=== PATIENT | male | born 1975 | race African-American/Black ===

== ENCOUNTER 2016-10-25 04:59 | Emergency (ER) | payer SELFPAY ==
[~2016-10-25] VITALS: Ht 170.2 cm; Wt 74.7 kg
[~2016-10-25 04:59] MED LIST: Ecotrin PO; Flovent 44 mcg IH; PROVENTIL HFA6.7 GM IH; PROVENTIL17 GM IH; Proventil,Ventolin H IH; SYMBICORT60 INHALA1 IH
[2016-10-25 06:30] VITALS: BP 144/111
== END 2016-10-25 06:32 | disposition home or self-care (01) ==
LOC: EME 04:59
DX: S93.401A Sprain of unspecified ligament of right ankle, initial encounter (principal); X50.9XXA Other and unspecified overexertion or strenuous movements or postures, initial encounter; Y93.67 Activity, basketball; J45.909 Unspecified asthma, uncomplicated; F17.200 Nicotine dependence, unspecified, uncomplicated
CPT/HCPCS: 73610; 99281; 99283

== ENCOUNTER 2017-02-19 07:02 | Emergency (ER) | payer SELFPAY ==
[~2017-02-19] VITALS: Ht 170.2 cm; Wt 72.4 kg
[2017-02-19 08:29] LABS: EOSINOPHIL (%) 5.4 % (0-5); EOSINOPHIL COUNT 0.2 K/uL (0-0.3); HEMATOCRIT 42.1 % (38.0-50.0); IMMATURE GRANULOCYTE (%) 0.8 % (0.0-0.7); LYMPHOCYTE COUNT 1.2 K/uL (1.0-2.8); MCH 29.9 PG (29.0-34.0); MCHC 33.3 G/DL (30.0-36.0); MEAN PLAT.VOLUME 10.8 uM^3 (9.0-12.4); MONOCYTE (%) 9.3 % (3-12); MONOCYTE COUNT 0.4 K/uL (0-0.8); NEUTROPHIL (%) 52.1 % (45-76); PLATELET COUNT 145 K/uL (156-360); RBC DIS.WIDTH-CV 12.5 % (11.8-14.6); RBC DIS.WIDTH-SD 41.2 % (39-53); RED BLOOD COUNT 4.68 M/uL (4.00-5.50); WHITE BLOOD COUNT 3.9 K/uL (4.1-10.2)
[2017-02-19 08:39] LABS: CHLORIDE 108 mEq/L (99-109); SODIUM 140 mEq/L (136-147)
[2017-02-19 08:40] LABS: GLUCOSE 86 mg/dL (70-99)
[2017-02-19 08:42] LABS: ANION GAP 8 MEQ/L (2-14)
[2017-02-19 08:44] LABS: GFR ESTIMATE (CALCULATED) > 59 mL/min/
[2017-02-19 08:45] LABS: UREA NITROGEN (BUN) 11 mg/dL (9-23)
[2017-02-19] MEDS ORDERED: PROAIR HFA8.5 GM IH (09:21)
[2017-02-19] MEDS ORDERED: PREDNISONE50 MG PO (09:21)
[2017-02-19 09:34] VITALS: BP 135/86
== END 2017-02-19 09:36 | disposition home or self-care (01) ==
LOC: EME 07:02
PROVIDERS: Emergency Medicine
DX: J45.901 Unspecified asthma with (acute) exacerbation (principal); F17.200 Nicotine dependence, unspecified, uncomplicated
CPT/HCPCS: 71020; 80048; 85025; 94640; 99281; 99284; J7512

== ENCOUNTER 2017-07-01 09:31 | Emergency (ER) | payer SELFPAY ==
[~2017-07-01] VITALS: Ht 170.2 cm; Wt 73.9 kg
[~2017-07-01 09:31] MED LIST changes: +PREDNISONE50 MG PO; +PROAIR HFA8.5 GM IH
[2017-07-01] MEDS ORDERED: ALBUTEROL2.5 MG/3 M IH (12:30)
[2017-07-01] MEDS ORDERED: PROAIR HFA8.5 GM IH (12:30)
[2017-07-01] MEDS ORDERED: MEDROL DOSEPAK4 MG PO (12:30)
[2017-07-01 13:40] VITALS: BP 103/81
== END 2017-07-01 13:41 | disposition home or self-care (01) ==
LOC: EME 09:31
DX: J45.901 Unspecified asthma with (acute) exacerbation (principal); F17.200 Nicotine dependence, unspecified, uncomplicated; J34.89 Other specified disorders of nose and nasal sinuses
CPT/HCPCS: 94640; 99281; 99284; J7512